=== PATIENT | male | born 2000 | race African-American/Black ===

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

== ENCOUNTER 2020-04-19 16:55 | Emergency (ER) | payer MEDICAID | END 2020-04-19 17:35 | disposition left against medical advice (07) | LOC: ER 16:55 | DX: R53.1 Weakness (principal); Z53.21 Procedure and treatment not carried out due to patient leaving prior to being seen by health care provider ==

== ENCOUNTER 2022-04-09 22:05 | Emergency (ER) | payer MEDICAID ==
[~2022-04-09] VITALS: Ht 182.9 cm; Wt 145.0 kg
[2022-04-09 22:09] VITALS: BP 117/90
[2022-04-10] MEDS ORDERED: IBUPROFEN 600MG TABLET PO ONE (00:30)
== END 2022-04-10 01:07 | disposition home or self-care (01) ==
LOC: ER 22:05
DX: J02.9 Acute pharyngitis, unspecified (principal); M79.18 Myalgia, other site; Z20.822 Contact with and (suspected) exposure to COVID-19
CPT/HCPCS: 72170; 87426; 99284; C9803